=== PATIENT | male | born 1945 | race Caucasian/White ===

== ENCOUNTER 2018-02-12 09:42 | Emergency (ER) | payer MEDICARE, OTHER ==
[~2018-02-12] VITALS: Ht 177.8 cm; Wt 88.5 kg
[~2018-02-12 09:42] MED LIST: ONDA4TAB6 PO
[2018-02-12] MEDS ORDERED: IBRU420T PO (10:16)
[2018-02-12] MEDS ORDERED: FINA5TAB11 PO (10:16)
[2018-02-12] MEDS ORDERED: TERA2CAP4 PO (10:16)
[2018-02-12 10:17] VITALS: BP 150/99
[2018-02-12 10:55] LABS: BASOPHILS % (AUTO) 0.1 % (0-1); EOSINOPHILS # (AUTO) 0.1 X10'3 (0-0.9); HEMATOCRIT 32.5 % (42.0-52.0); HEMOGLOBIN 11.2 g/dl (14.0-17.9); LYMPHOCYTES # (AUTO) 0.7 X10'3 (1.1-4.8); LYMPHOCYTES % (AUTO) 9.7 % (21-51); MEAN CORPUSCULAR HEMOGLOBIN 29.1 PG (27.0-31.0); MEAN CORPUSCULAR HGB CONC 34.3 % (33.0-36.5); MEAN CORPUSCULAR VOLUME 84.8 FL (78-98); MEAN PLATELET VOLUME 9.2 FL (7.4-10.4); MONOCYTES # (AUTO) 0.4 X10'3 (0-0.9); MONOCYTES % (AUTO) 5.4 % (2-12); NEUTROPHILS # (AUTO) 6.3 X10'3 (1.8-7.7); NEUTROPHILS % (AUTO) 83.8 % (42-75); PLATELET COUNT 187 X10'3 (140-440); RED BLOOD COUNT 3.83 X10'6 (4.70-6.10); RED CELL DISTRIBUTION WIDTH 13.9 % (11.5-14.5); WHITE BLOOD COUNT 7.5 X10'3 (4.5-11.0)
[2018-02-12 10:58] LABS: PARTIAL THROMBOPLASTIN TIME 28 SECONDS (22-32); PROTHROMBIN TIME 10.2 SECONDS (9.0-12.0)
[2018-02-12 11:04] LABS: ALANINE AMINOTRANSFERASE 17 U/L (12-78); ALBUMIN 3.1 G/DL (3.4-5.0); ALBUMIN/GLOBULIN RATIO 0.8 (1.1-1.5); ALKALINE PHOSPHATASE 60 IU/L (46-116); ANION GAP 8 (8-16); ASPARTATE AMINO TRANSFERASE 14 U/L (10-37); BILIRUBIN,TOTAL 1.9 MG/DL (0.1-1.0); BLOOD UREA NITROGEN 12 MG/DL (7-18); BUN/CREATININE RATIO 13.2 (5.4-32.0); CALCIUM 8.2 MG/DL (8.5-10.1); CHLORIDE 102 MMOL/L (99-107); CREATININE 0.91 MG/DL (0.60-1.10); GLUCOSE 104 MG/DL (70-104); POTASSIUM 3.5 MMOL/L (3.5-5.1); SODIUM 135 MMOL/L (135-145); TOTAL CARBON DIOXIDE 25.2 MMOL/L (24-32); TOTAL PROTEIN 6.9 G/DL (6.4-8.2); eGFR 82 ML/MIN
[2018-02-12] MEDS ORDERED: ONDA8TAB9 PO (12:18)
[2018-02-12] MEDS ORDERED: HYDR-565 PO (12:18)
[2018-02-12] MEDS ORDERED: HYDROcodone/acetaminophen 10/325mg tab PO ONE (12:45)
== END 2018-02-12 12:37 | disposition home or self-care (01) ==
LOC: ER 09:43
DX: S80.12XA Contusion of left lower leg, initial encounter (principal); I10 Essential (primary) hypertension; Z87.442 Personal history of urinary calculi; Z98.890 Other specified postprocedural states; Z88.8 Allergy status to other drugs, medicaments and biological substances; Z79.899 Other long term (current) drug therapy; V19.88XA Pedal cyclist (driver) (passenger) injured in other specified transport accidents, initial encounter; Y93.55 Activity, bike riding; Y92.413 State road as the place of occurrence of the external cause; Y99.9 Unspecified external cause status
CPT/HCPCS: 36415; 80053; 85025; 85610; 85730; 99284; A6255; A6446; A6449

== ENCOUNTER 2021-10-26 12:17 | Inpatient (IN) | payer MEDICARE, OTHER ==
[~2021-10-26] VITALS: Ht 177.8 cm; Wt 90.9 kg
[~2021-10-26 12:17] MED LIST changes: +FINA5TAB11 PO; +IBRU420T PO; -ONDA4TAB6 PO; +ONDA8TAB9 PO; +TERA2CAP4 PO
[2021-10-26 13:40] LABS: BASOPHILS % (AUTO) 0.8 % (0-1); EOSINOPHILS # (AUTO) 0.1 X10'3 (0-0.9); EOSINOPHILS % (AUTO) 1.1 % (0-6); HEMATOCRIT 40.9 % (42.0-52.0); HEMOGLOBIN 13.3 g/dl (14.0-17.9); LYMPHOCYTES % (AUTO) 16.3 % (21-51); MEAN CORPUSCULAR HGB CONC 32.5 g/dL (33.0-36.5); MEAN CORPUSCULAR VOLUME 86.1 FL (78-98); MEAN PLATELET VOLUME 10.4 FL (7.4-10.4); MONOCYTES # (AUTO) 0.6 X10'3 (0-0.9); MONOCYTES % (AUTO) 10.8 % (2-12); NEUTROPHILS # (AUTO) 4.2 X10'3 (1.8-7.7); PLATELET COUNT 172 X10'3 (140-440); RED BLOOD COUNT 4.75 X10'6 (4.70-6.10); RED CELL DISTRIBUTION WIDTH 14.9 % (11.5-14.5); WHITE BLOOD COUNT 5.9 X10'3 (4.5-11.0)
[2021-10-26 13:52] LABS: ALANINE AMINOTRANSFERASE 15 U/L (12-78); ALBUMIN/GLOBULIN RATIO 0.9 (1.1-1.5); ALKALINE PHOSPHATASE 55 IU/L (46-116); ANION GAP 8 (8-16); ASPARTATE AMINO TRANSFERASE 14 U/L (10-37); BLOOD UREA NITROGEN 13 MG/DL (7-18); CHLORIDE 105 MMOL/L (99-107); CREATININE 0.93 MG/DL (0.60-1.10); GLUCOSE 186 MG/DL (70-104); POTASSIUM 3.5 MMOL/L (3.5-5.1); SODIUM 140 MMOL/L (135-145); TOTAL PROTEIN 6.3 G/DL (6.4-8.2); eGFR 79 ML/MIN
[2021-10-26] MEDS ORDERED: diltiazem 5mg/ml 5ml inj. IV ONE (14:50)
--- NOTE | 2021-10-26 15:48 | NUR ---
solange tipton at bedside.
[2021-10-26] MEDS ORDERED: diltiazem-D5W 125mg/125ml 125 ML IV SCH (15:50)
[2021-10-26] MEDS ORDERED: diltiazem-NS 100mg/100ml 125 ML IV SCH (16:00)
[2021-10-26] MEDS ORDERED: metoprolol succinate 25mg (24-HOUR) SR. Tablet PO STA (16:03)
[2021-10-26] MEDS ORDERED: PERFLUTREN PROTEIN-A MICROSPHR (Optison) 0.22 MG/ML 3ML VIAL IV ONE (16:05)
[2021-10-26] MEDS ORDERED: magnesium Cl slow-release 64mg tablet PO PRN (16:05)
[2021-10-26] MEDS ORDERED: acetaminophen 325mg tablet PO PRN (16:05)
[2021-10-26] MEDS ORDERED: furosemide 10 MG/1 ML 10ml inj IV ONE (16:05)
[2021-10-26] MEDS ORDERED: magnesium 2GM in 50ml NS 50 ML IV PRN (16:05)
[2021-10-26] MEDS ORDERED: magnesium 4gm in 100ml NS 100 ML IV PRN (16:05)
[2021-10-26] MEDS ORDERED: POTASSIUM BICARB 20meq eff tab 20 MEQ TABLET.EFF PO PRN ×2 (16:05)
[2021-10-26] MEDS ORDERED: magnesium hydroxide 30ml (MOM) UD suspension PO PRN (16:05)
[2021-10-26] MEDS ORDERED: ondansetron/PF 4mg/2ml inj IV PRN (16:05)
[2021-10-26] MEDS ORDERED: mag hydrox/Alum hydrox/simeth 30ml oral suspension PO PRN (16:05)
[2021-10-26] MEDS ORDERED: potassium CL 10mEq/100ml bag 100 ML IV PRN (16:05)
[2021-10-26] MEDS: apixaban 5mg tablet PO SCH ×2 (16:10→20:54)
[2021-10-26 16:52] LABS: POTASSIUM 3.6 MMOL/L (3.5-5.1)
[2021-10-26] MEDS: diltiazem-NS 100mg/100ml 100 ML IV SCH (17:01)
[2021-10-26] MEDS ORDERED: AMLO5TAB16 PO (17:09)
[2021-10-26] MEDS ORDERED: TERA2CAP4 PO (17:09)
[2021-10-26] MEDS: K and/or MAG REPLACEMENT MC SCH (20:00)
[2021-10-26] MEDS: furosemide 10 MG/1 ML 10ml inj IV SCH (20:49)
[2021-10-26] MEDS: metoprolol tartrate 50mg tablet PO SCH (20:50)
[2021-10-26] MEDS: docusate sod 100mg capsule PO SCH (20:50)
[2021-10-26 21:55] VITALS: BP 142/102
[2021-10-27] VITALS (22 sets, daily range): BP systolic 86–126; BP diastolic 60–90
[2021-10-27] MEDS ORDERED: diltiazem-NS 100mg/100ml 100 ML IV SCH (06:10)
--- NOTE | 2021-10-27 06:32 | NUR ---
Patient in room PCU 3017. I have received report from JOSE BALDERRAMA, and had the opportunity to ask questions and assume patient care.
[2021-10-27 06:41] LABS: BASOPHILS % (AUTO) 0.5 % (0-1); EOSINOPHILS # (AUTO) 0.1 X10'3 (0-0.9); EOSINOPHILS % (AUTO) 1.2 % (0-6); HEMATOCRIT 40.6 % (42.0-52.0); HEMOGLOBIN 13.4 g/dl (14.0-17.9); LYMPHOCYTES # (AUTO) 0.9 X10'3 (1.1-4.8); LYMPHOCYTES % (AUTO) 14.8 % (21-51); MEAN CORPUSCULAR HEMOGLOBIN 28.2 PG (27.0-31.0); MEAN CORPUSCULAR HGB CONC 33.1 g/dL (33.0-36.5); MEAN CORPUSCULAR VOLUME 85.3 FL (78-98); MEAN PLATELET VOLUME 10.3 FL (7.4-10.4); MONOCYTES # (AUTO) 0.7 X10'3 (0-0.9); MONOCYTES % (AUTO) 10.9 % (2-12); NEUTROPHILS # (AUTO) 4.7 X10'3 (1.8-7.7); NEUTROPHILS % (AUTO) 72.6 % (42-75); PLATELET COUNT 173 X10'3 (140-440); RED BLOOD COUNT 4.76 X10'6 (4.70-6.10); RED CELL DISTRIBUTION WIDTH 14.9 % (11.5-14.5); WHITE BLOOD COUNT 6.4 X10'3 (4.5-11.0)
[2021-10-27] MEDS: diltiazem-NS 100mg/100ml 100 ML IV SCH (07:02)
[2021-10-27 07:38] LABS: ALBUMIN 2.8 G/DL (3.4-5.0); ANION GAP 8 (8-16); BLOOD UREA NITROGEN 14 MG/DL (7-18); BUN/CREATININE RATIO 16.5 (5.4-32.0); CALCIUM 7.8 MG/DL (8.5-10.1); CHLORIDE 107 MMOL/L (99-107); CREATININE 0.85 MG/DL (0.60-1.10); GLUCOSE 101 MG/DL (70-104); POTASSIUM 3.2 MMOL/L (3.5-5.1); SODIUM 143 MMOL/L (135-145); TOTAL CARBON DIOXIDE 28.4 MMOL/L (24-32); eGFR 87 ML/MIN
[2021-10-27] MEDS: furosemide 10 MG/1 ML 10ml inj IV SCH ×2 (07:56→20:52)
[2021-10-27] MEDS: Terazosin 1mg capsule PO SCH (07:58)
[2021-10-27] MEDS: apixaban 5mg tablet PO SCH ×2 (07:58→20:50)
[2021-10-27] MEDS: metoprolol tartrate 50mg tablet PO SCH ×2 (07:59→20:59)
[2021-10-27] MEDS: K and/or MAG REPLACEMENT MC SCH ×2 (08:00→20:00)
[2021-10-27] MEDS: finasteride 5mg tablet PO SCH (08:00)
[2021-10-27] MEDS: docusate sod 100mg capsule PO SCH ×2 (08:00→20:50)
[2021-10-27] MEDS ORDERED: metoprolol tartrate 25mg tablet PO ONE (11:40)
[2021-10-27] MEDS ORDERED: morphine 10mg/ml inj. IV ONE (14:00)
[2021-10-27] MEDS ORDERED: amiodarone 150mg/dext, iso-os 100 ML IV ONE ×5 (14:00→16:26)
[2021-10-27] MEDS ORDERED: MIDAZolam 1mg/ml 10ml vial IV ONE (14:00)
--- NOTE | 2021-10-27 14:14 | NUR ---
METOPROLOL 25 MG NOT ADMINISTERED, NOTIFIED.
[2021-10-27] MEDS ORDERED: PERFLUTREN PROTEIN-A MICROSPHR (Optison) 0.22 MG/ML 3ML VIAL IV ONE (14:15)
--- NOTE | 2021-10-27 14:23 | NUR ---
ORDERS FOR CALVIN PUT IN PER DR. DRISCOLL.
[2021-10-27] MEDS ORDERED: normal saline 250ml IV soln 250 ML IV ONE (16:20)
--- NOTE | 2021-10-27 16:40 | NUR ---
CARDIO VERSION JOULES DELIVERED: 14:14 - 150J, 14:15 - 200J, 14:35 - 200J
[2021-10-27] MEDS ORDERED: atropine 0.1mg/ml 10ml syringe IV ONE (16:50)
[2021-10-27] MEDS ORDERED: magnesium 2GM in 50ml NS 50 ML IV ONE (16:50)
[2021-10-27] MEDS ORDERED: atropine 0.1mg/ml 10ml syringe IV PRN (17:30)
--- NOTE | 2021-10-27 18:36 | NUR ---
ATROPINE 0.5MG IF THE HR IS LESS THAN 40 BPM, ORDER WAS TO BE PRN, BUT I FORGOT TO ENTER IT A PRN. I PHONED THE PHARMACIST AND ASKED HIM TO CHANGE THE ORDER TO PRN.
--- NOTE | 2021-10-27 18:45 | NUR ---
Problems reprioritized. Patient report given, questions answered & plan of care reviewed with JOSE GONZALEZ.
--- NOTE | 2021-10-27 21:04 | NUR ---
Potassium replacement protocol was completed per morning Lamar GARCIA.
[2021-10-28] VITALS: BP 96/64
[2021-10-28 01:00] VITALS: BP 101/69
[2021-10-28 02:00] VITALS: BP 100/66
[2021-10-28 06:00] VITALS: BP 105/69
[2021-10-28 06:43] LABS: BASOPHILS % (AUTO) 0.7 % (0-1); EOSINOPHILS # (AUTO) 0.1 X10'3 (0-0.9); EOSINOPHILS % (AUTO) 1.5 % (0-6); HEMATOCRIT 39.5 % (42.0-52.0); HEMOGLOBIN 13.2 g/dl (14.0-17.9); LYMPHOCYTES % (AUTO) 13.6 % (21-51); MEAN CORPUSCULAR HEMOGLOBIN 28.7 PG (27.0-31.0); MEAN CORPUSCULAR HGB CONC 33.5 g/dL (33.0-36.5); MEAN CORPUSCULAR VOLUME 85.7 FL (78-98); MEAN PLATELET VOLUME 10.4 FL (7.4-10.4); MONOCYTES # (AUTO) 0.7 X10'3 (0-0.9); MONOCYTES % (AUTO) 10.6 % (2-12); NEUTROPHILS # (AUTO) 5.2 X10'3 (1.8-7.7); NEUTROPHILS % (AUTO) 73.6 % (42-75); PLATELET COUNT 184 X10'3 (140-440); RED BLOOD COUNT 4.61 X10'6 (4.70-6.10); RED CELL DISTRIBUTION WIDTH 14.8 % (11.5-14.5); WHITE BLOOD COUNT 7.1 X10'3 (4.5-11.0)
[2021-10-28 06:51] LABS: ALBUMIN 2.8 G/DL (3.4-5.0); ANION GAP 4 (8-16); BLOOD UREA NITROGEN 19 MG/DL (7-18); BUN/CREATININE RATIO 17.3 (5.4-32.0); CALCIUM 7.9 MG/DL (8.5-10.1); CHLORIDE 104 MMOL/L (99-107); GLUCOSE 105 MG/DL (70-104); MAGNESIUM 2.2 MG/DL (1.5-2.4); POTASSIUM 3.7 MMOL/L (3.5-5.1); SODIUM 140 MMOL/L (135-145); TOTAL CARBON DIOXIDE 31.6 MMOL/L (24-32); eGFR 65 ML/MIN
--- NOTE | 2021-10-28 07:08 | NUR ---
Problems reprioritized. Patient report given, JOSE Martinez, questions answered & plan of care reviewed with .
--- NOTE | 2021-10-28 07:26 | NUR ---
Patient in room PCU 3017. I have received report from JOSE GONZALEZ, and had the opportunity to ask questions and assume patient care.
[2021-10-28] MEDS: K and/or MAG REPLACEMENT MC SCH (08:00)
[2021-10-28] MEDS: docusate sod 100mg capsule PO SCH (08:51)
[2021-10-28] MEDS: Terazosin 1mg capsule PO SCH (08:51)
[2021-10-28] MEDS: furosemide 10 MG/1 ML 10ml inj IV SCH (08:51)
[2021-10-28] MEDS: apixaban 5mg tablet PO SCH (08:51)
[2021-10-28] MEDS: metoprolol tartrate 50mg tablet PO SCH (08:52)
[2021-10-28] MEDS: finasteride 5mg tablet PO SCH (08:52)
[2021-10-28] MEDS ORDERED: amiodarone 200mg tablet PO SCH (09:55)
[2021-10-28 11:00] VITALS: BP 107/70
[2021-10-28] MEDS ORDERED: AMIO200T67 PO (11:53)
[2021-10-28] MEDS ORDERED: APIX5TAB3 PO (11:53)
[2021-10-28] MEDS ORDERED: LISI2.5T14 PO (11:53)
[2021-10-28] MEDS ORDERED: METO50TA16 PO (11:53)
--- NOTE | 2021-10-28 14:02 | NUR ---
PT STABLE FOR DISCHARGE PER MD. TELE BOC REMOVED. PIV REMOVED WITH TIP INTACT. DISCHARGE AND FOLLOW UP INSTRUCTIONS REVIEWED WITH PT. OPPORTUNITY GIVEN TO ASK QUESTIONS. APPROPRIATE PAPERWORK SIGNED. PT DISCHARGED TO HOME. PT WALKED TO LOBBY WITH HOSPITAL STAFF. PT TRANSPORTED BY PRIVATE VEHICLE.
== END 2021-10-28 14:05 | disposition home or self-care (01) | DRG 291 ==
LOC: ER 12:18 → ED HOLD 16:08 → PCU 3S 21:30 → OBSVTOIN 10-27 09:00
PROVIDERS: ADMIT Family Medicine; ATTEND Family Medicine
PROC: 5A2204Z Restoration of Cardiac Rhythm, Single (ICD-10-PCS; principal; 2021-10-27)
PROC: B24CZZ4 Ultrasonography of Pericardium, Transesophageal (ICD-10-PCS; 2021-10-27)
DX: I11.0 Hypertensive heart disease with heart failure (principal); I50.23 Acute on chronic systolic (congestive) heart failure; C91.10 Chronic lymphocytic leukemia of B-cell type not having achieved remission; I48.91 Unspecified atrial fibrillation; E87.6 Hypokalemia; N40.0 Benign prostatic hyperplasia without lower urinary tract symptoms; I49.3 Ventricular premature depolarization; Z87.442 Personal history of urinary calculi; Z88.8 Allergy status to other drugs, medicaments and biological substances; Z79.899 Other long term (current) drug therapy
CPT/HCPCS: 36415; 71045; 80048; 80053; 83735; 83880; 84132; 84484; 85025; 87081; 93005; 93306; 93312; 94799; 97116; 97161; 99285; G0378; J0282; J1940; J2250; J2274; J3475; J3490; J7050

== ENCOUNTER 2021-10-31 13:33 | Emergency (ER) | payer MEDICARE, OTHER ==
[~2021-10-31] VITALS: Ht 177.8 cm; Wt 90.9 kg
[~2021-10-31 13:33] MED LIST changes: +AMIO200T67 PO; +APIX5TAB3 PO; -IBRU420T PO; +LISI2.5T14 PO; +METO50TA16 PO; -ONDA8TAB9 PO
[2021-10-31 14:16] LABS: ALANINE AMINOTRANSFERASE 29 U/L (12-78); ALBUMIN 3.1 G/DL (3.4-5.0); ALBUMIN/GLOBULIN RATIO 0.9 (1.1-1.5); ALKALINE PHOSPHATASE 76 IU/L (46-116); ANION GAP 6 (8-16); ASPARTATE AMINO TRANSFERASE 16 U/L (10-37); BILIRUBIN,TOTAL 1.1 MG/DL (0.1-1.0); BLOOD UREA NITROGEN 19 MG/DL (7-18); BUN/CREATININE RATIO 19.4 (5.4-32.0); CALCIUM 8.1 MG/DL (8.5-10.1); CHLORIDE 103 MMOL/L (99-107); CREATININE 0.98 MG/DL (0.60-1.10); GLUCOSE 153 MG/DL (70-104); POTASSIUM 3.8 MMOL/L (3.5-5.1); SODIUM 138 MMOL/L (135-145); TOTAL CARBON DIOXIDE 29.1 MMOL/L (24-32); TOTAL PROTEIN 6.7 G/DL (6.4-8.2); eGFR 74 ML/MIN
[2021-10-31 14:21] LABS: BASOPHILS # (AUTO) 0.1 X10'3 (0-0.2); BASOPHILS % (AUTO) 0.8 % (0-1); EOSINOPHILS # (AUTO) 0.1 X10'3 (0-0.9); HEMOGLOBIN 14.1 g/dl (14.0-17.9); LYMPHOCYTES # (AUTO) 0.9 X10'3 (1.1-4.8)
[2021-10-31 14:23] LABS: EOSINOPHILS % (AUTO) 1.6 % (0-6); HEMATOCRIT 42.9 % (42.0-52.0); LYMPHOCYTES % (AUTO) 12.7 % (21-51); MEAN CORPUSCULAR HEMOGLOBIN 28.6 PG (27.0-31.0); MEAN CORPUSCULAR HGB CONC 32.8 g/dL (33.0-36.5); MEAN CORPUSCULAR VOLUME 87.3 FL (78-98); MEAN PLATELET VOLUME 10.6 FL (7.4-10.4); MONOCYTES # (AUTO) 0.6 X10'3 (0-0.9); MONOCYTES % (AUTO) 8.4 % (2-12); NEUTROPHILS # (AUTO) 5.6 X10'3 (1.8-7.7); NEUTROPHILS % (AUTO) 76.5 % (42-75); PLATELET COUNT 207 X10'3 (140-440); RED BLOOD COUNT 4.91 X10'6 (4.70-6.10); RED CELL DISTRIBUTION WIDTH 14.7 % (11.5-14.5); WHITE BLOOD COUNT 7.3 X10'3 (4.5-11.0)
[2021-10-31] MEDS ORDERED: furosemide 10 MG/1 ML 10ml inj IV ONE (15:10)
[2021-10-31] MEDS ORDERED: POTASSIUM BICARB 20meq eff tab 20 MEQ TABLET.EFF PO ONE (15:10)
[2021-10-31] MEDS ORDERED: FURO-150 PO (15:36)
[2021-10-31] MEDS ORDERED: POTA-207 PO (15:36)
[2021-10-31 16:00] VITALS: BP 120/73
--- NOTE | 2021-11-04 09:28 | NUR ---
Case Management DC follow up: Left message on Patients answering machine.
--- NOTE | 2021-11-04 13:29 | NUR ---
Case Management DC follow up:Spoke with Patient's via telephone.S/P: Patient Reports:Denies: Acute chest pain, emergent SOB,resp distress; however; verbalizes he dose have orthopnea, and sleeps in recliner.Denies symptoms of stroke/FAST,hematochezia, melena, unexplained bruising, fever ,chills.Verbalizes understanding of new RX, why prescribed; continues/resumes current Rx as ordered.Verbalized his legs are still really swollen , and has moist cough at night.Directed Patient to call 's office, or PCP regarding changes of increased swelling in legs and moist cough.Reviewed need to follow fluid intake ,including, but not limited to ,anything that melts: ice, Jello, ice-cream.Weigh daily, gaining greater than three to five pounds in a week warrant a call to PCP or 's office .Verbalizes compliance with aftercare.Verbalizes understanding of s/s that warrant 9-11/ER visit for further evaluation. Has scheduled appointments with Oncologist ,and Dr. Helton. Plans to schedule appointment with PCP Dr.June Downing.Verbalizes the staff were nice.Need met, questions/concerns were addressed at DC.No further questions/concerns regarding recent hospital stay, and /or DC status.
== END 2021-10-31 16:47 | disposition home or self-care (01) ==
LOC: ER 13:34
DX: I11.0 Hypertensive heart disease with heart failure (principal); I50.9 Heart failure, unspecified; R06.02 Shortness of breath; R60.0 Localized edema; Z87.442 Personal history of urinary calculi; Z98.890 Other specified postprocedural states; Z85.9 Personal history of malignant neoplasm, unspecified; Z88.8 Allergy status to other drugs, medicaments and biological substances; Z79.899 Other long term (current) drug therapy
CPT/HCPCS: 71045; 80053; 83880; 84484; 85025; 93005; 96374; 99285; J1940